=== PATIENT | male | born 1940 ===

== ENCOUNTER 2017-12-27 10:09 | Day surgery (SDC) | payer MEDICARE ==
[2017-12-27] MEDS ORDERED: diphenhydrAMINE 25 MG CAP PO SCH (10:45)
[2017-12-27] MEDS ORDERED: Acetaminophen 500 MG TAB PO SCH (10:45)
[2017-12-27 11:18] VITALS: BMI 27.9
[2017-12-27 14:44] LABS: Hemoglobin 8.7 g/dL (14.0-18.0)
[2017-12-27 18:04] VITALS: BP 156/71; TEMP 99.9
[2017-12-27 18:33] LABS: Mean Corpuscular HGB CONC 33.4 g/dL (32.0-36.0); Mean Corpuscular Hemoglobin 30.4 pg (27.0-31.0); Mean Platelet Volume 9.2 fL (7.4-10.4); Platelet Count 155 thou/uL (130-400); RBC Distribution Width 19.8 % (11.5-14.5); Red Blood Cell (RBC) Count 3.29 mill/uL (4.70-6.10); White Blood Cell (WBC) Count 15.4 thou/uL (4.8-10.8)
[2017-12-27 19:00] LABS: Anisocytosis MODERATE=16-30 cells (100X) (0-5/hpf); Band 13 % (5-11); Lymphocytes 17 % (21-51); MDiff Complete? YES; Metamyelocyte 2 % (0-0); Monocytes 7 % (0-10); Neutrophil 61 % (42-75); Nucleated RBC 3 % (0); Ovalocytes SLIGHT = 2-5 cells (100X) (0-1/hpf); PLT Morphology Comment Appears Adequate; Polychromasia SLIGHT = 2-3 cells (100X) (0-2/hpf)
== END 2017-12-27 18:25 | disposition home or self-care (01) ==
LOC: ONC/OP 10:09 → ONC 10:16 → ONC/OP 18:25
PROVIDERS: ATTEND Internal Medicine Hematology & Oncology
DX: D64.9 Anemia, unspecified (principal); D69.6 Thrombocytopenia, unspecified
CPT/HCPCS: 36415; 36430; 85014; 85018; 86850; 86900; 86901; P9016

== ENCOUNTER 2018-07-28 11:58 | Inpatient (IN) | payer MEDICARE ==
[2018-07-28 13:47] LABS: Hemoglobin 10.4 g/dL (14.0-18.0); Mean Corpuscular HGB CONC 31.2 g/dL (32.0-36.0); Mean Corpuscular Hemoglobin 27.7 pg (27.0-31.0); Mean Corpuscular Volume 88.6 fL (78.0-98.0); Mean Platelet Volume 8.9 fL (7.4-10.4); Platelet Count 258 thou/uL (130-400); RBC Distribution Width 20.3 % (11.5-14.5); Red Blood Cell (RBC) Count 3.75 mill/uL (4.70-6.10); White Blood Cell (WBC) Count 25.3 thou/uL (4.8-10.8)
[2018-07-28 13:51] LABS: Prothrombin Time 13.5 SEC (12.0-14.7)
[2018-07-28 13:52] LABS: PTT 29.1 SEC (22.9-36.1)
[2018-07-28 14:04] LABS: ALT (SGPT) 54 U/L (8-55); AST (SGOT) 164 U/L (5-34); Albumin 3.2 g/dL (3.4-4.8); Alkaline Phosphatase 373 U/L (40-150); Anion Gap 12 mmol/L (10-20); BUN (Urea Nitrogen) 18 mg/dL (8.4-25.7); Bilirubin, Total 0.5 mg/dL (0.2-1.2); Calc. Creatinine Clearance 0 mL/min (70-130); Calcium 8.4 mg/dL (7.8-10.44); Carbon Dioxide 24 mmol/L (23-31); Chloride 107 mmol/L (98-107); Estimated GFR-MDRD 90; Globulin 2.4 g/dL (2.4-3.5); Glucose 120 mg/dL (83-110); Lipase 51 U/L (8-78); Protein, Total 5.6 g/dL (5.8-8.1); Sodium 139 mmol/L (136-145)
[2018-07-28 14:14] LABS: Anisocytosis MODERATE=16-30 cells (100X) (0-5/hpf); Band 10 % (5-11); Dohle Bodies SLIGHT; Lymphocytes 1 % (21-51); MDiff Complete? YES; Monocytes 2 % (0-10); Myelocyte 1 % (0-0); Neutrophil 82 % (42-75); Ovalocytes SLIGHT = 2-5 cells (100X) (0-1/hpf); PLT Morphology Comment Appears Adequate; Poikilocytosis SLIGHT = 6-15 cells (100X) (0-5/hpf); Polychromasia SLIGHT = 2-3 cells (100X) (0-2/hpf); Reactive Lymphocytes 3 % (0-10); Target Cells SLIGHT = 2-5 cells (100X) (0-1/hpf); Tear Drops SLIGHT = 2-5 cells (100X) (0-1/hpf); Toxic Granulation SLIGHT; Vacuoles SLIGHT
[2018-07-28 14:31] LABS: Bilirubin Negative (Negative); Blood, Urine Negative (Negative); Clarity CLOUDY (Clear); Glucose, Urine (Dipstick) Negative (Negative); Leukocyte Negative (Negative); Nitrite Negative (Negative); Protein, Urine (Dipstick) Negative (Neg-Trace); Specific Gravity, Urine 1.016 (1.002-1.036); Urobilinogen 0.2 mg/dL (0.2-1.0)
--- NOTE | 2018-07-28 15:14 | RAD ---
CHEST 1 VIEW: HISTORY: Dyspnea. COMPARISON: 03/13/2018. FINDINGS: Cardiac silhouette is magnified by projection and predominantly obscured by dense bibasilar infiltrat es and bilateral pleural fluid. Pulmonary vasculature is engorged. Mediastinum is midline. NO evid ence of pneumothorax. Irregular sclerotic densities are present throughout the osseous structures. IMPRESSION: 1. Bilateral pleural fluid and bibasilar infiltrates favored to be related to congestive heart failu re. 2. Sclerotic densities throughout the osseous structures worrisome for widespread metastatic disease . POS: MELVIN
[2018-07-28] MEDS ORDERED: Sodium Chloride 0.9% 1,000 ML IV SCH (17:15)
[2018-07-28 17:43] VITALS: BMI 28.1
[2018-07-28] MEDS ORDERED: Ondansetron ODT 4 MG TAB PO PRN (18:00)
[2018-07-28] MEDS ORDERED: Acetaminophen 325 MG TAB PO PRN (18:00)
[2018-07-28] MEDS ORDERED: Acetaminophen 650 MG Suppository PR PRN (18:00)
[2018-07-28] MEDS ORDERED: Ondansetron PF 4 MG/2 ML Vial IVP PRN (18:00)
[2018-07-28] MEDS ORDERED: HYDROcodone/Acetaminophen 5/325 mg Tablet PO PRN (18:00)
[2018-07-28] MEDS ORDERED: Enoxaparin Sodium 40 MG/0.4 ML SYRINGE SC SCH (18:30)
[2018-07-28] MEDS: Famotidine 20 MG TAB PO SCH (21:42)
[2018-07-28] MEDS: Tamsulosin HCl 0.4 MG CAP PO SCH (21:42)
[2018-07-29 05:57] LABS: Anion Gap 16 mmol/L (10-20); BUN (Urea Nitrogen) 16 mg/dL (8.4-25.7); Calc. Creatinine Clearance 109 mL/min (70-130); Calcium 8.3 mg/dL (7.8-10.44); Carbon Dioxide 20 mmol/L (23-31); Chloride 109 mmol/L (98-107); Estimated GFR-MDRD Greater than 90; Glucose 90 mg/dL (83-110); Potassium 3.8 mmol/L (3.5-5.1); Sodium 141 mmol/L (136-145)
[2018-07-29 06:00] LABS: Band 13 % (5-11); Hemoglobin 10.2 g/dL (14.0-18.0); Lymphocytes 5 % (21-51); MDiff Complete? YES; Mean Corpuscular HGB CONC 31.9 g/dL (32.0-36.0); Mean Corpuscular Hemoglobin 28.2 pg (27.0-31.0); Mean Corpuscular Volume 88.5 fL (78.0-98.0); Mean Platelet Volume 9.1 fL (7.4-10.4); Monocytes 4 % (0-10); Neutrophil 78 % (42-75); PLT Morphology Comment Appears Adequate; Platelet Count 245 thou/uL (130-400); RBC Distribution Width 20.2 % (11.5-14.5); Red Blood Cell (RBC) Count 3.62 mill/uL (4.70-6.10); White Blood Cell (WBC) Count 24.1 thou/uL (4.8-10.8)
[2018-07-29] MEDS ORDERED: Eucerin (Mineral Oil/Petrolatum,White) 30 gm Jar TOP PRN (07:47)
[2018-07-29] MEDS ORDERED: Diabetic Tussin 200 MG/10 ML UDCUP PO PRN (07:47)
[2018-07-29] MEDS ORDERED: Loratadine 10 MG TAB PO PRN (07:47)
[2018-07-29] MEDS ORDERED: Senokot S 8.6-50 MG TAB PO PRN (07:47)
[2018-07-29] MEDS ORDERED: Bisacodyl 10 MG SUPP PR PRN (07:47)
[2018-07-29] MEDS ORDERED: Loperamide HCl 2 MG CAP PO PRN (07:47)
[2018-07-29] MEDS ORDERED: Artificial Tears 18 DROP/0.9 ML EA EYE PRN (07:47)
[2018-07-29] MEDS ORDERED: hydrALAZINE 20 MG/ML VIAL SLOW IVP PRN (07:47)
[2018-07-29] MEDS ORDERED: Cepastat Lozenges 1 LOZ PO PRN (07:47)
[2018-07-29] MEDS ORDERED: Sodium Chloride 0.65% Nasal 44 ML BOT EA NARE PRN (07:47)
[2018-07-29] MEDS ORDERED: Zolpidem Tartrate 5 MG TAB PO PRN (07:47)
[2018-07-29] MEDS: Famotidine 20 MG TAB PO SCH ×2 (08:39→20:37)
[2018-07-29] MEDS: Enoxaparin Sodium 40 MG/0.4 ML SYRINGE SC SCH (08:40)
--- NOTE | 2018-07-29 10:54 | PDOC.PN ---
- Subjective Encounter Start Date: 07/29/18 Encounter Start Time: 07:10 -: old records requested/rev Patient seen and examined. No new complaints. No overnight events pt has cough, no dyspnea - Objective Resuscitation Status - Order Detail: 07/28/18 16:30 Resuscitation Status Routine Resuscitation Status: FULL: Full Resuscitation MAR Reviewed: Yes Vital Signs & Weight: Vital Signs (12 hours) Temp Pulse Resp BP Pulse Ox 07/29/18 08:39 97 07/29/18 07:47 97.7 F 104 H 15 145/66 H 97 07/29/18 03:29 97.6 F 95 141/63 H 95 Weight Weight 203 lb 4.8 oz I&O: 07/28/18 07/29/18 07/30/18 06:59 06:59 06:59 Intake Total 1450 Output Total 376 Balance 1074 Result Diagrams: 07/29/18 05:04 07/29/18 05:04 Radiology Reviewed by me: Yes (chest xray reviewed) EKG Reviewed by me: Yes (nsr) Phys Exam - Physical Examination Constitutional: NAD HEENT: PERRLA, moist MMs, sclera anicteric Neck: no JVD, supple Respiratory: no wheezing, no rhonchi reduced ai entry at base, few rales Cardiovascular: RRR, no significant murmur, no rub Gastrointestinal: soft, non-tender, no distention, positive bowel sounds Musculoskeletal: no edema, pulses present Neurological: non-focal, normal sensation, moves all 4 limbs Lymphatic: no nodes Psychiatric: normal affect, A&O x 3 Skin: no rash, normal turgor Dx/Plan (1) Bilateral pleural effusion Code(s): J90 - PLEURAL EFFUSION, NOT ELSEWHERE CLASSIFIED Status: Acute (2) Mild basilar atelectasis of both lungs Code(s): J98.11 - ATELECTASIS Status: Acute (3) Pneumonia Code(s): J18.9 - PNEUMONIA, UNSPECIFIED ORGANISM Status: Acute (4) Sepsis Code(s): A41.9 - SEPSIS, UNSPECIFIED ORGANISM Status: Acute (5) Anemia of chronic disease Code(s): D63.8 - ANEMIA IN OTHER CHRONIC DISEASES CLASSIFIED ELSEWHERE Status : Chronic (6) GERD (gastroesophageal reflux disease) Code(s): K21.9 - GASTRO-ESOPHAGEAL REFLUX DISEASE WITHOUT ESOPHAGITIS Status: Chronic (7) Malignant neoplasm of prostate metastatic to bone Code(s): C61 - MALIGNANT NEOPLASM OF PROSTATE; C79.51 - SECONDARY MALIGNANT NEOPLASM OF BONE Status: Chronic (8) CHF (congestive heart failure) Code(s): I50.9 - HEART FAILURE, UNSPECIFIED Status: Suspected - Plan cont current plan of care, plan discussed w/ family, continue antibiotics, PT/OT , respiratory therapy * DC IVF * start levaquin * get Echo today * medication reviewed as below * symptomatic treatment * discussed with family bedside * repeat labs tomorrow. * follow culture Review of Systems - Review of Systems Constitutional: weakness. negative: fever, chills, sweats, malaise, other Respiratory: Cough, Shortness of Breath. negative: Dry, Hemoptysis, SOB with Excertion, Pleuritic Pain, Sputum, Wheezing Gastrointestinal: negative: Nausea, Vomiting, Abdominal Pain, Diarrhea, Constipation, Melena, Hematochezia, Other Genitourinary: negative: Dysuria, Frequency, Incontinence, Hematuria, Retention , Other Musculoskeletal: negative: Neck Pain, Shoulder Pain, Arm Pain, Back Pain, Hand Pain, Leg Pain, Foot Pain, Other Skin: negative: Rash, Lesions, Watson, Bruising, Other - Medications/Allergies Allergies/Adverse Reactions: Allergies Allergy/AdvReac Type Severity Reaction Status Date / Time Penicillins Allergy Intermediate Hives Verified 07/28/18 17:30 Medications: Current Medications Acetaminophen (Tylenol) 650 mg PO Q4H PRN PRN Reason: Headache/Fever/Mild Pain (1-3) Hydrocodone Bitart/Acetaminophen ([place] 5/325) 1 tab PO Q4H PRN PRN Reason: Moderate Pain (4-6) Albuterol/Ipratropium (Duoneb) 3 ml NEB [id number] PRN PRN Reason: SOB &/or Wheezing Artificial Tears (Tears Naturale) 2 drop EA EYE PRN PRN PRN Reason: Dry Eyes Bisacodyl (Dulcolax) 10 mg [place] DAILYPRN PRN PRN Reason: Constipation Enoxaparin Sodium (Lovenox) 40 mg SC 0900 [facility] Last Admin: 07/29/18 08:40 Dose: 40 mg Famotidine (Pepcid) 20 mg PO BID [facility] Last Admin: 07/29/18 08:39 Dose: 20 mg Guaifenesin (Robitussin Sf) 200 mg PO Q4H PRN PRN Reason: Cough Hydralazine HCl (Apresoline) 10 mg SLOW IVP Q4H PRN PRN Reason: SBP > 180 and HR < 70 Levofloxacin 750 mg/ Device 150 mls @ 100 mls/hr IVPB 1400 SARAI Loperamide HCl (Imodium) 2 mg PO PRN PRN PRN Reason: Diarrhea/Loose Stools Loratadine (Claritin) 10 mg PO DAILYPRN PRN PRN Reason: Sinus Symptoms Mineral Oil/White Petrolatum (Eucerin Cream) 0 gm TOP BIDPRN PRN PRN Reason: Dry Skin Ondansetron HCl (Zofran Odt) 4 mg PO Q6H PRN PRN Reason: Nausea/Vomiting Ondansetron HCl (Zofran) 4 mg IVP Q6H PRN PRN Reason: Nausea/Vomiting Senna/Docusate Sodium (Senokot S) 2 tab PO BID PRN PRN Reason: Constipation Sodium Chloride ([place] Nasal [place] 0.65%) 0 ml EA NARE QIDPRN PRN PRN Reason: Nasal Congestion Tamsulosin HCl (Flomax) 0.4 mg PO HS [facility] Last Admin: 07/28/18 21:42 Dose: 0.4 mg Throat Lozenges (Cepastat Lozenges) 1 steve PO Q2H PRN PRN Reason: Sore Throat Zolpidem Tartrate (Ambien) 5 mg PO HSPRN PRN PRN Reason: Insomnia
[2018-07-29] MEDS ORDERED: Furosemide 40 MG/4 ML VIAL SLOW IVP SCH (14:30)
--- NOTE | 2018-07-29 14:45 | HP ---
PRIMARY CARE PHYSICIAN: PRIMARY ONCOLOGIST: Fredis Heredia MD. TIME OF SERVICE: 1520 hours. CHIEF COMPLAINT: Shortness of breath. HISTORY OF PRESENT ILLNESS: Mr. Regalado is a pleasant, age-appropriate appearing 78-year-old male with a history of metastatic prostate cancer to bone that currently on chemotherapy. Received chemotherapy last on 07/16/2018, next dose due 08/07/2017. He states that today only he was short of breath. Denies any PND or orthopnea, but does have PATEL. He has had cold symptoms with a cough productive of some nasty sputum, and since being in the emergency department, he has coughed up quite amount of phlegm and feels much better. His workup in the ER, found to have large bilateral pleural effusions on chest x-ray, mildly elevated liver functions with white blood cell count of 25,000. He is tachycardic with a heart rate of 107 and normal lactic acid. We were subsequently called for admission for further workup. The patient is feeling much better. He received vancomycin and levofloxacin in the emergency department due to penicillin allergy and had blood culture sent. PAST MEDICAL HISTORY: 1. Metastatic prostate cancer. 2. BPH. 3. Seasonal allergies. PAST SURGICAL HISTORY: Includes a lithotripsy in the past and has bilateral cataracts. CURRENT HOME MEDICATIONS: 1. Zyrtec 10 mg p.o. daily. 2. Mucinex p.r.n. 3. Promethazine DM p.r.n. 4. Flomax 0.4 mg p.o. at bedtime. 5. Tramadol p.r.n. pain. 6. Calcium carbonate/D2 taken daily. 7. Decadron taken on the day before chemo and then on the day after chemotherapy. ALLERGIES: PENICILLIN CAUSES A RASH. FAMILY HISTORY: Negative for clotting or bleeding disorders, no immune dysfunction. SOCIAL HISTORY: Negative habits x3. REVIEW OF SYSTEMS: All systems reviewed and negative, except as per HPI. PHYSICAL EXAMINATION: VITAL SIGNS: Temperature 91, pulse 107, blood pressure 137/78, respiratory rate 20, saturating 97% on room air. GENERAL: He is awake. He is alert. He is oriented x3. He is well-developed, well-nourished, elderly white male. Appears in no distress. He is actually sitting up in a chair and out of the emergency room cart. HEENT: Normocephalic and atraumatic. His pupils are equal, round, and reactive to light bilaterally. Mucous membranes are moist. He has bilateral intraocular lenses. He does have bilateral lower lid drooping. NECK: Supple. There is no lymphadenopathy, JVD, or thyromegaly. He has normal carotid upstroke. I do not appreciate bruits. LUNGS: Have decreased breath sounds bilaterally and dullness to both bases. He has some air movement. There is no prolonged expiratory phase and no wheezes. CARDIOVASCULAR: He is tachycardic, but regular. Normal S1 and S2. He has a 2/6 systolic ejection murmur, best heard in the right upper sternal border. ABDOMEN: Soft. It is nontender, nondistended. He has good bowel sounds in all four quadrants. EXTREMITIES: There is no cyanosis, no clubbing. He has 1+ bilateral pedal edema. SKIN: Warm, moist, and well perfused. He has no other rashes or lesions. NEUROLOGIC: Cranial nerves 2 through 12 are grossly intact. There are no focal deficits. Normal speech pattern and 5/5 strength. MUSCULOSKELETAL: Normal to inspection. Large joints appear normal. There is no evidence of inflammation. No palpable effusions. LABORATORY DATA: Sodium is 139, potassium is 4.0, chloride is 107, bicarb is 24, BUN is 18, creatinine is 0.83, glucose is 120, and calcium of 8.4. Liver functions show an alkaline phosphatase of 373. AST of 164, ALT of 54. CBC showed a white count of 25,000, hemoglobin is 10.4, hematocrit of 33.2, and platelet count of 258,000. CT scan he has large pleural effusions, otherwise negative. ASSESSMENT AND PLAN: 1. Acute dyspnea. The patient got bilateral effusions He feels better after getting some phlegm up. Continue on Mucinex and levofloxacin, and we will watch him overnight. Pulmonary Critical Care was consulted by the ER, we will follow up on their recommendations. 2. History of metastatic prostate cancer to bone, obviously concerned about his bilateral effusions in this metastatic disease. We will follow up on Pulmonary recommendations. Suspect large volume tap, cytology is coming. 3. Benign prostatic hyperplasia. We will continue his Flomax. 4. Seasonal allergies. We will continue his Zyrtec, Mucinex, and Promethazine DM. Job ID: [id number]
--- NOTE | 2018-07-29 17:27 | CON ---
DATE OF CONSULTATION: 07/29/2018 CONSULTING PHYSICIAN: Evaist . REASON FOR CONSULTATION: Bilateral pleural effusions. The following encompassed 50 minutes of time, of that time, greater than 50% spent with the patient and/or in the patient's unit in the hospital. HISTORY OF PRESENT ILLNESS: A 78-year-old male, who I have been asked to see in regard to pleural effusions. He says he has had difficulty with his breathing for the last week or so. He says he got chemotherapy back in mid June and that is when his breathing problems initially started. He does not know of any history of heart problems in the past. He sees Dr. Heredia for chemotherapy related to his prostate cancer. He has known bony metastasis and also has 1.5 cm adrenal nodule. PAST MEDICAL HISTORY: Metastatic prostate cancer. PAST SURGICAL HISTORY: He has had lithotripsy and cataract surgery. SOCIAL HISTORY: Nonsmoker. Does not consume alcohol. MEDICATIONS: Prior to admission; 1. Calcium carbonate 500 mg daily. 2. Zyrtec 10 mg daily. 3. Mucinex 600 mg twice daily. 4. Promethazine with dextromethorphan 15 mg/6.25 mg in 5 mL 1 teaspoon twice daily as needed. 5. Tamsulosin 0.4 mg daily. 6. Tramadol 50 mg every 6 hours as needed. REVIEW OF SYSTEMS: He has had a low-grade fever. No chills. No nausea or vomiting. No chest pain, hemoptysis, melena, hematochezia, hematuria, or dysuria. PHYSICAL EXAMINATION: VITAL SIGNS: Temperature 98.0, pulse 113, respirations 17, O2 saturation 98% on room air, and blood pressure 154/64. GENERAL: He is sitting up. He appears comfortable with his breathing. HEENT: He has alopecia. Oropharynx is clear. NECK: Without adenopathy or JVD. LUNGS: He has diminished breath sounds. Dullness to percussion both bases approximately 1[address] bilaterally. CARDIOVASCULAR: S1 and S2. Regular without audible murmur. ABDOMEN: Soft, nontender, and nondistended. EXTREMITIES: He has 2+ edema from his ankles upward to his thighs bilaterally. LABORATORY DATA: White blood cell count 24.1, hematocrit 32, and platelet count 245, with 78% neutrophils and 13% bands. Sodium 141, potassium 3.8, chloride 109, CO2 of 20, BUN 16, creatinine 0.7, and glucose 90. His BNP level was initially 83. Urinalysis was negative. I reviewed the CT scan from [place]. He has fairly marked bilateral pleural effusions. I did not see any other masses. ASSESSMENT: Bilateral effusions. This could be related to heart failure, cancer, or the effects of his chemotherapy. RECOMMENDATION: Await results of the echocardiogram that were done earlier today before proceeding with more definitive treatment. I would give him a trial of diuretics since that has not been done already, if the echo is unrevealing to proceed with thoracentesis in the next day or 2. Does not appear to be in emergent need at this time. We will have his x-ray repeated on Sunday. Job ID: [id number]
[2018-07-29] MEDS: Tamsulosin HCl 0.4 MG CAP PO SCH (20:37)
--- NOTE | 2018-07-29 23:28 | CON ---
DATE OF CONSULTATION: REASON FOR CONSULTATION: Prostate cancer. HISTORY OF PRESENT ILLNESS: A 78-year-old male with metastatic prostate cancer involving bone, currently on Taxotere, presenting to the hospital with shortness of breath and dyspnea on exertion with cough productive of clear yellow sputum. The patient was seen in the [place] ER and was found to have a bilateral large pleural effusions and was sent over to [facility] ER and admitted for evaluation. The patient has been started on Lasix and states that his symptoms have improved. The patient denies any fevers, chills, nausea, vomiting, diarrhea, or constipation at this time. The patient last received chemotherapy on July 16 and Neulasta on July 17. The patient's white blood cells are elevated at 25,000 on admission and were 13 in clinic on July 16. The patient has had leukocytosis before as high as 17.5 back in October 2017. The patient had mild tachycardia in the ER and lactic acid was normal. The patient has been evaluated by Dr. Mendes and his recommendations are currently pending. Echocardiogram was also done and the results are currently pending. REVIEW OF SYSTEMS: 10-point review of systems negative except as per HPI. PAST MEDICAL HISTORY: Metastatic prostate cancer. PAST SURGICAL HISTORY: Lithotripsy, bilateral cataract surgery. CURRENT MEDICATIONS: Reviewed. ALLERGIES: PENICILLIN. SOCIAL HISTORY: No smoking or alcohol. FAMILY HISTORY: No cancer. PHYSICAL EXAMINATION: VITAL SIGNS: Temperature 98.3, pulse 104 to 113, respirations 16, satting 97% on room air, and blood pressure 137/61. GENERAL APPEARANCE: The patient is lying in chair, in no acute distress. HEENT: Normocephalic, atraumatic. No scleral icterus. NECK: Supple. No lymphadenopathy. LUNGS: Decreased breath sounds bilaterally up to the mid lung meek, otherwise is clear to auscultation without any wheezing. CARDIOVASCULAR: S1 and S2, regular rhythm and rate with a 2/6 ejection murmur. ABDOMEN: Soft, nondistended, and nontender. EXTREMITIES: 3+ to 4+ edema up to knees bilaterally. SKIN: Warm and no rashes are present. NEUROLOGIC: Cranial nerves 2 through 12 are grossly intact and otherwise nonfocal exam. PSYCHIATRIC: Awake, alert, and oriented x3 with appropriate mood and affect. LABORATORY DATA: White blood cells 24.1, hemoglobin 10.2, platelets 245, with 78% neutrophils and 13% band neutrophils. Sodium 141, potassium 3.8, chloride 109, carbon dioxide 20, BUN 16, creatinine 0.77. Lactic acid 1.1. PSA dated July 16, 2018, is 3961, which was up from 2803 on June 25, 2018. IMAGING DATA: Outside CT scan showed bilateral pleural effusions. An x-ray at [facility] shows bilateral pleural fluid and bibasilar infiltrates, favored to be related to congestive heart failure. Also noted sclerotic densities throughout the osseous structures worrisome for widespread metastatic disease. ASSESSMENT AND PLAN: A 78-year-old male with metastatic prostate cancer to bone, currently on Taxotere, presenting with worsening lower extremity edema and bilateral pleural effusions with shortness of breath and cough. The patient has bilateral pleural effusions, shortness of breath, dyspnea on exertion, and cough, which may be related to congestive heart failure, though BNP is only 83.7. Echocardiogram is pending. His effusions could also be secondary to pneumonia, though this is not clear on the scan and the patient is currently afebrile, though he does have leukocytosis with left shift. The patient is currently receiving Levaquin to cover for possible pneumonia. Urine was clear and did not show any infection. The patient's pleural effusions and lower extremity edema could also be secondary to Taxotere as fluid overload is a known side effect of this drug. The patient's albumin was 3.2. Agree with Lasix and would recommend continued diuresis. If this is secondary to Taxotere, it should improve with simple supportive care. We will await Dr. Mendes's recommendations and the results of the echocardiogram. Otherwise, continue supportive care. Thank you for this consult. Job ID: [id number]
[2018-07-30 06:21] LABS: #Basophils 0.1 thou/uL (0.0-0.2); #Eosinphils 0.1 thou/uL (0.0-0.7); #Lymphocytes 1.1 thou/uL (1.20-3.40); #Monocytes 0.8 thou/uL (0.11-0.59); #Neutrophils 15.2 thou/uL (1.40-6.50); %Basophils 0.6 % (0.0-1.0); %Eosinophils 0.4 % (0.0-10.0); %Lymphocytes 6.4 % (21.0-51.0); %Monocytes 4.8 % (0.0-10.0); %Neutrophils 87.8 % (42.0-75.0); Hemoglobin 10.3 g/dL (14.0-18.0); Mean Corpuscular HGB CONC 31.7 g/dL (32.0-36.0); Mean Corpuscular Hemoglobin 28.1 pg (27.0-31.0); Mean Corpuscular Volume 88.7 fL (78.0-98.0); Platelet Count 238 thou/uL (130-400); RBC Distribution Width 20.2 % (11.5-14.5); Red Blood Cell (RBC) Count 3.66 mill/uL (4.70-6.10); White Blood Cell (WBC) Count 17.3 thou/uL (4.8-10.8)
[2018-07-30 06:44] LABS: ALT (SGPT) 51 U/L (8-55); AST (SGOT) 144 U/L (5-34); Albumin 3.1 g/dL (3.4-4.8); Alkaline Phosphatase 351 U/L (40-150); Anion Gap 12 mmol/L (10-20); BUN (Urea Nitrogen) 18 mg/dL (8.4-25.7); Bilirubin, Total 0.5 mg/dL (0.2-1.2); Calc. Creatinine Clearance 90 mL/min (70-130); Calcium 8.3 mg/dL (7.8-10.44); Carbon Dioxide 25 mmol/L (23-31); Chloride 106 mmol/L (98-107); Estimated GFR-MDRD 78; Globulin 2.4 g/dL (2.4-3.5); Glucose 97 mg/dL (83-110); Potassium 3.6 mmol/L (3.5-5.1); Protein, Total 5.5 g/dL (5.8-8.1); Sodium 139 mmol/L (136-145)
[2018-07-30] MEDS: Enoxaparin Sodium 40 MG/0.4 ML SYRINGE SC SCH (09:20)
[2018-07-30] MEDS: Famotidine 20 MG TAB PO SCH ×2 (09:20→20:15)
--- NOTE | 2018-07-30 09:22 | PDOC.PN ---
- Subjective Encounter Start Date: 07/30/18 Encounter Start Time: 07:20 Patient seen and examined. No new complaints. No overnight events - Objective Resuscitation Status - Order Detail: 07/28/18 16:30 Resuscitation Status Routine Resuscitation Status: FULL: Full Resuscitation MAR Reviewed: Yes Vital Signs & Weight: Vital Signs (12 hours) Temp Pulse Resp BP Pulse Ox 07/30/18 03:54 98.0 F 100 16 142/67 H 93 L Weight Weight 209 lb I&O: 07/29/18 07/30/18 07/31/18 06:59 06:59 06:59 Intake Total 1450 540 Output Total 376 1300 Balance 1074 -760 Result Diagrams: 07/30/18 05:49 07/30/18 05:49 EKG Reviewed by me: Yes (nsr) Phys Exam - Physical Examination Constitutional: NAD HEENT: PERRLA, moist MMs, sclera anicteric Neck: no JVD, supple Respiratory: no wheezing, no rhonchi reduced air entry Cardiovascular: RRR, no significant murmur, no rub Gastrointestinal: soft, non-tender, no distention, positive bowel sounds Musculoskeletal: no edema, pulses present Neurological: non-focal, normal sensation Lymphatic: no nodes Psychiatric: normal affect Skin: no rash, normal turgor Dx/Plan (1) Bilateral pleural effusion Code(s): J90 - PLEURAL EFFUSION, NOT ELSEWHERE CLASSIFIED Status: Acute (2) Mild basilar atelectasis of both lungs Code(s): J98.11 - ATELECTASIS Status: Acute (3) Pneumonia Code(s): J18.9 - PNEUMONIA, UNSPECIFIED ORGANISM Status: Acute (4) Sepsis Code(s): A41.9 - SEPSIS, UNSPECIFIED ORGANISM Status: Acute (5) Anemia of chronic disease Code(s): D63.8 - ANEMIA IN OTHER CHRONIC DISEASES CLASSIFIED ELSEWHERE Status : Chronic (6) GERD (gastroesophageal reflux disease) Code(s): K21.9 - GASTRO-ESOPHAGEAL REFLUX DISEASE WITHOUT ESOPHAGITIS Status: Chronic (7) Malignant neoplasm of prostate metastatic to bone Code(s): C61 - MALIGNANT NEOPLASM OF PROSTATE; C79.51 - SECONDARY MALIGNANT NEOPLASM OF BONE Status: Chronic (8) CHF (congestive heart failure) Code(s): I50.9 - HEART FAILURE, UNSPECIFIED Status: Suspected - Plan cont current plan of care, continue antibiotics, respiratory therapy * continue lasix * continue levaquin * repeat labs tomorrow * tomorrow will check chest xray * medication reviewed as below * symptomatic treatment. Review of Systems - Review of Systems ENT: negative: Ear Pain, Ear Discharge, Nose Pain, Nose Discharge, Nose Congestion, Mouth Pain, Mouth Swelling, Throat Pain, Throat Swelling, Other Respiratory: negative: Cough, Dry, Shortness of Breath, Hemoptysis, SOB with Excertion, Pleuritic Pain, Sputum, Wheezing Cardiovascular: negative: chest pain, palpitations, orthopnea, paroxysmal nocturnal dyspnea, edema, light headedness, other Gastrointestinal: negative: Nausea, Vomiting, Abdominal Pain, Diarrhea, Constipation, Melena, Hematochezia, Other Genitourinary: negative: Dysuria, Frequency, Incontinence, Hematuria, Retention , Other Musculoskeletal: negative: Neck Pain, Shoulder Pain, Arm Pain, Back Pain, Hand Pain, Leg Pain, Foot Pain, Other Skin: negative: Rash, Lesions, Watson, Bruising, Other - Medications/Allergies Allergies/Adverse Reactions: Allergies Allergy/AdvReac Type Severity Reaction Status Date / Time Penicillins Allergy Intermediate Hives Verified 07/28/18 17:30 Medications: Current Medications Acetaminophen (Tylenol) 650 mg PO Q4H PRN PRN Reason: Headache/Fever/Mild Pain (1-3) Hydrocodone Bitart/Acetaminophen ([place] 5/325) 1 tab PO Q4H PRN PRN Reason: Moderate Pain (4-6) Albuterol/Ipratropium (Duoneb) 3 ml NEB [id number] PRN PRN Reason: SOB &/or Wheezing Artificial Tears (Tears Naturale) 2 drop EA EYE PRN PRN PRN Reason: Dry Eyes Bisacodyl (Dulcolax) 10 mg [place] DAILYPRN PRN PRN Reason: Constipation Enoxaparin Sodium (Lovenox) 40 mg SC 0900 [facility] Last Admin: 07/30/18 09:20 Dose: 40 mg Famotidine (Pepcid) 20 mg PO BID [facility] Last Admin: 07/30/18 09:20 Dose: 20 mg Furosemide (Lasix) 40 mg SLOW IVP 0600,1400 [facility] Guaifenesin (Robitussin Sf) 200 mg PO Q4H PRN PRN Reason: Cough Hydralazine HCl (Apresoline) 10 mg SLOW IVP Q4H PRN PRN Reason: SBP > 180 and HR < 70 Levofloxacin 750 mg/ Device 150 mls @ 100 mls/hr IVPB 1400 [facility] Last Admin: 07/29/18 13:45 Dose: 150 mls Loperamide HCl (Imodium) 2 mg PO PRN PRN PRN Reason: Diarrhea/Loose Stools Loratadine (Claritin) 10 mg PO DAILYPRN PRN PRN Reason: Sinus Symptoms Mineral Oil/White Petrolatum (Eucerin Cream) 0 gm TOP BIDPRN PRN PRN Reason: Dry Skin Ondansetron HCl (Zofran Odt) 4 mg PO Q6H PRN PRN Reason: Nausea/Vomiting Ondansetron HCl (Zofran) 4 mg IVP Q6H PRN PRN Reason: Nausea/Vomiting Last Admin: 07/29/18 18:00 Dose: 4 mg Senna/Docusate Sodium (Senokot S) 2 tab PO BID PRN PRN Reason: Constipation Sodium Chloride ([place] Nasal [place] 0.65%) 0 ml EA NARE QIDPRN PRN PRN Reason: Nasal Congestion Tamsulosin HCl (Flomax) 0.4 mg PO HS [facility] Last Admin: 07/29/18 20:37 Dose: 0.4 mg Throat Lozenges (Cepastat Lozenges) 1 steve PO Q2H PRN PRN Reason: Sore Throat Zolpidem Tartrate (Ambien) 5 mg PO HSPRN PRN PRN Reason: Insomnia
--- NOTE | 2018-07-30 13:27 | PRG ---
DATE OF SERVICE: 07/30/2018 SUBJECTIVE: This morning, he denies any difficulty breathing, coughing, or wheezing. He had an echocardiogram done, which shows elevated right ventricular pressures, bilateral pleural effusion, EF is 70%. He is coughing, but no wheezing. OBJECTIVE: VITAL SIGNS: Blood pressure is 124/58, sats are 100% on room air, respiratory rate 18, pulse 103, temperature 98. CHEST: Decreased breath sounds bilaterally. CARDIAC: Normal S1 and S2. no murmers. ABDOMEN: Without any masses. LABORATORY DATA: Lytes are normal. White count 17,000, H and H 10 and 32, platelet count 238. IMPRESSION: 1. Bilateral pleural effusions. 2. Congestive heart failure, probably diastolic. PLAN: Dr. Mendes to address his pleural effusion tomorrow. Continue antibiotics and neb treatment. Job ID: [id number] [id number]
[2018-07-30] MEDS: Furosemide 40 MG/4 ML VIAL SLOW IVP SCH (14:26)
[2018-07-30] MEDS: Tamsulosin HCl 0.4 MG CAP PO SCH (20:16)
[2018-07-31] MEDS: Furosemide 40 MG/4 ML VIAL SLOW IVP SCH (05:24)
[2018-07-31 06:07] LABS: #Basophils 0.1 thou/uL (0.0-0.2); #Eosinphils 0.1 thou/uL (0.0-0.7); #Lymphocytes 0.9 thou/uL (1.20-3.40); #Neutrophils 11.4 thou/uL (1.40-6.50); %Basophils 0.6 % (0.0-1.0); %Eosinophils 0.5 % (0.0-10.0); %Lymphocytes 6.9 % (21.0-51.0); %Monocytes 7.3 % (0.0-10.0); %Neutrophils 84.7 % (42.0-75.0); Hemoglobin 9.9 g/dL (14.0-18.0); Mean Corpuscular HGB CONC 31.9 g/dL (32.0-36.0); Mean Corpuscular Hemoglobin 28.2 pg (27.0-31.0); Mean Corpuscular Volume 88.3 fL (78.0-98.0); Platelet Count 234 thou/uL (130-400); RBC Distribution Width 20.1 % (11.5-14.5); Red Blood Cell (RBC) Count 3.49 mill/uL (4.70-6.10); White Blood Cell (WBC) Count 13.4 thou/uL (4.8-10.8)
[2018-07-31 06:21] LABS: Anion Gap 14 mmol/L (10-20); BUN (Urea Nitrogen) 21 mg/dL (8.4-25.7); Calc. Creatinine Clearance 95 mL/min (70-130); Calcium 8.4 mg/dL (7.8-10.44); Carbon Dioxide 24 mmol/L (23-31); Chloride 106 mmol/L (98-107); Estimated GFR-MDRD 83; Glucose 89 mg/dL (83-110); Magnesium 1.9 mg/dL (1.6-2.6); Potassium 3.5 mmol/L (3.5-5.1); Sodium 140 mmol/L (136-145)
[2018-07-31] MEDS: Enoxaparin Sodium 40 MG/0.4 ML SYRINGE SC SCH (08:52)
[2018-07-31] MEDS: Famotidine 20 MG TAB PO SCH (08:52)
--- NOTE | 2018-07-31 09:19 | PDOC.PN ---
- Subjective Encounter Start Date: 07/31/18 Encounter Start Time: 11:00 Subjective: Patient feeling much better after diuresis. No SOB currently. Off -: oxygen. - Objective Resuscitation Status - Order Detail: 07/28/18 16:30 Resuscitation Status Routine Resuscitation Status: FULL: Full Resuscitation MAR Reviewed: Yes Vital Signs & Weight: Vital Signs (12 hours) Temp Pulse Resp BP Pulse Ox 07/31/18 07:26 98.5 F 98 17 125/59 L 100 07/31/18 04:00 98.8 F 100 18 129/60 95 Weight Weight 209 lb 12.8 oz I&O: 07/30/18 07/31/18 08/01/18 06:59 06:59 06:59 Intake Total 540 900 Output Total 1300 1500 Balance -760 -600 Result Diagrams: 07/31/18 05:28 07/31/18 05:28 Phys Exam - Physical Examination Constitutional: NAD HEENT: moist MMs Respiratory: no wheezing, no rhonchi Bibasilar rales and decrease breath sounds Cardiovascular: RRR, no significant murmur Gastrointestinal: soft, positive bowel sounds Musculoskeletal: edema present Neurological: non-focal, moves all 4 limbs Psychiatric: normal affect, A&O x 3 Dx/Plan (1) Bilateral pleural effusion Code(s): J90 - PLEURAL EFFUSION, NOT ELSEWHERE CLASSIFIED Status: Acute Comment: Diastolic CHF vs. Taxotere fluid overload, diuretics, Dr. Mendes has cleared him for discharge, no need for thoracentesis at this time (2) Diastolic congestive heart failure Code(s): I50.30 - UNSPECIFIED DIASTOLIC (CONGESTIVE) HEART FAILURE Status: Acute Qualifiers: Heart failure chronicity: acute Qualified Code(s): I50.31 - Acute diastolic (congestive) heart failure Comment: Diuresing (3) Pneumonia Code(s): J18.9 - PNEUMONIA, UNSPECIFIED ORGANISM Status: Suspected Comment: On Levaquin (4) Sepsis Code(s): A41.9 - SEPSIS, UNSPECIFIED ORGANISM Status: Resolved Comment: WBC improving, vitals stable (5) GERD (gastroesophageal reflux disease) Code(s): K21.9 - GASTRO-ESOPHAGEAL REFLUX DISEASE WITHOUT ESOPHAGITIS Status: Chronic (6) Malignant neoplasm of prostate metastatic to bone Code(s): C61 - MALIGNANT NEOPLASM OF PROSTATE; C79.51 - SECONDARY MALIGNANT NEOPLASM OF BONE Status: Chronic - Plan cont current plan of care, continue antibiotics, PT/OT, out of bed/ambulate, DVT proph w/lovenox, DVT proph w/SCDs Discharge home on Lasix and finish course of Levaquin. * . - Discharge Day Encounter end time: 11:35
--- NOTE | 2018-07-31 10:15 | PRG ---
DATE OF SERVICE: 07/31/2018 SUBJECTIVE: He is doing well. He is breathing better. He has no complaints. OBJECTIVE: VITAL SIGNS: On exam, temperature is 98.5, pulse 98, respirations 17, O2 saturation 100% on room air, and blood pressure 125/59. HEENT: Unremarkable. NECK: No JVD. LUNGS: Diminished breath sounds in both bases. CARDIAC: S1 and S2. Regular. ABDOMEN: Soft. EXTREMITIES: 3+ edema. LABORATORY DATA: White blood cell count 13.4, hematocrit 30.9, and platelet count 234. Sodium 140, potassium 3.5, chloride 106, CO2 of 24, BUN 21, creatinine 0.8, and glucose 89. ASSESSMENT: 1. Pleural effusions induced by Taxotere. 2. Diastolic cardiac dysfunction. PLAN: Since he is not hypoxic or symptomatic, I would recommend just observation. He can follow up in the office in 3 to 4 weeks for a repeat x-ray. If he gets worse, we could tap this as an outpatient. Otherwise, there are no plans for thoracentesis at this time. Repeat x-ray for today is pending, but that should not hold up any potential discharge. Job ID: [id number]
--- NOTE | 2018-07-31 11:29 | RAD ---
FRONTAL RADIOGRAPH CHEST Date: 07-31-18 Comparison: 07-28-18 History: Pleural effusions. FINDINGS: There is multifocal increased density throughout the osseous structures suggesting extensive scleroti c change on the basis of osseous metastatic disease. There is dense pleural and parenchymal opacity i n both lung bases as seen on the 07-28-18 examination. IMPRESSION: 1. Stable nonspecific pleural and parenchymal opacity in the lung bases. Pulmonary edema is favored. Underlying infectious pneumonitis cannot be excluded. 2. Extensive multifocal sclerosis of the osseous structures suggesting osseous metastatic disease. POS: [facility]
[2018-07-31 12:00] VITALS: BP 131/58; TEMP 97.7
--- NOTE | 2018-07-31 14:46 | DIS ---
DATE OF ADMISSION: 07/28/2018 DATE OF DISCHARGE: 07/31/2018 PRIMARY CARE PHYSICIAN: Allen Jeong. REASON FOR ADMISSION: Acute dyspnea. DISCHARGE DIAGNOSES: 1. Bilateral pleural effusions. 2. Diastolic congestive heart failure secondary to fluid overload from Taxotere. 3. Suspected pneumonia. 4. Sepsis, resolved. 5. Gastroesophageal reflux disease. 6. Metastatic prostate cancer, on Taxotere chemotherapy. CONSULTATIONS: 1. Pulmonology, Dr. Mendes. 2. Oncology, Dr. Rosa. PROCEDURES: Echocardiogram showing ejection fraction of 65% to 70% and grade 1/ 3 diastolic dysfunction and elevated right ventricular systolic pressure 42 mmHg. SUMMARY OF HOSPITAL COURSE: This is a 78-year-old white male with a history of metastatic prostate cancer, on Taxotere chemotherapy, who presented with 1-day of shortness of breath and some lower extremity edema. He was found to have severely low white blood cell count 25,000. Also, he is tachycardic and had bilateral pleural effusions on his chest x-ray. The patient along with some possibility of infiltrates. The patient was admitted to the hospital, was given IV antibiotics , Levaquin and vancomycin. He was also given Lasix. Pulmonology and Oncology were consulted. The patient did improve markedly with diuresis of a lot of fluid, was breathing normally by the day of discharge. His white cell count came down to 13,000 by the day of discharge. He was having no fever and his tachycardia had resolved. Dr. Mendes did evaluate the patient's pleural effusions and decided that with improved respiratory status he does not need a thoracentesis at this time. The patient actually has had a history of similar fluid overload from 3 years ago and he was on chemotherapy at that time. On the day of discharge, he was improved and being transitioned to oral diuretics and antibiotics. DISCHARGE MANAGEMENT: Discharged to home. FOLLOWUP: Follow up with Dr. Heredia in [address] Mendes in 3 to 4 weeks. ACTIVITY: As tolerated. DIET: Fluid restricted, low-sodium diet. HOME MEDICATIONS: 1. Nexium 40 mg daily. 2. Flomax 0.4 mg daily. 3. Levaquin 750 mg daily for 3 more days. 4. Furosemide 40 mg daily for 14 days. Job ID: [id number] [facility]
== END 2018-07-31 15:28 | disposition home or self-care (01) | DRG 871 ==
LOC: ERS 11:58 → 2NO 15:08
PROVIDERS: ADMIT Internal Medicine Infectious Disease; ATTEND Internal Medicine Infectious Disease
DX: A41.9 Sepsis, unspecified organism (principal); J18.9 Pneumonia, unspecified organism; C79.51 Secondary malignant neoplasm of bone; J90 Pleural effusion, not elsewhere classified; I50.20 Unspecified systolic (congestive) heart failure; C61 Malignant neoplasm of prostate; Z92.21 Personal history of antineoplastic chemotherapy; N40.0 Benign prostatic hyperplasia without lower urinary tract symptoms; J30.2 Other seasonal allergic rhinitis; Z79.899 Other long term (current) drug therapy; Z88.0 Allergy status to penicillin; K21.9 Gastro-esophageal reflux disease without esophagitis; D63.8 Anemia in other chronic diseases classified elsewhere
CPT/HCPCS: 36415; 71045; 80048; 80053; 81003; 83605; 83690; 83735; 83880; 84484; 85025; 85610; 85730; 87040; 93005; 93306; 96365; 96366; 96367; J1650; J1940; J1956; J2405; J3370; Q0162